=== PATIENT | male | born 1950 | race African-American/Black ===

== ENCOUNTER → 2019-02-05 | Outpatient (CLI) | payer MEDICARE, OTHER ==
[2019-02-06 23:09] LABS: HCV QUANT BY PCR HCV Not Detected IU/mL (())
== END ==
LOC: M.ULTRA 07:30
PROVIDERS: Physician Assistant
DX: B18.2 Chronic viral hepatitis C (principal); N28.1 Cyst of kidney, acquired; R93.2 Abnormal findings on diagnostic imaging of liver and biliary tract; Z90.49 Acquired absence of other specified parts of digestive tract; K74.60 Unspecified cirrhosis of liver

== ENCOUNTER → 2020-05-27 | Outpatient (CLI) | payer MEDICARE, OTHER ==
[~2020-05-27] MED LIST: ALBUTEROL2.5 MG/0.5 INH; ALBUTEROL2.5 MG/31 INH; ALPRAZOLAM 0.0.25 MG PO; AMBIEN 5 MG TABL5 M1 PO; AMITRIPTYLINE H10 M3 PO; ANTIVERT25 MG PO; BENAZEPRIL HCL20 MG PO; CALCIUM 500 +1 EAC5 PO; CALCIUM 600 +1 EA14 PO; CEFUROXIME250 MG PO; CHOLESTYRAMINE P4 GM PO; DILAUDID 4 MG TA4 M1 PO; DILAUDID4 MG PO; KLOR-CON 1010 MEQ PO; LYRICA 50 MG50 MG PO; MAGOX 400400 MG PO; MEDROL DOSPAK21 TA1 PO; MELOXICAM15 MG PO; MOBIC15 MG PO; NAPROSYN500 MG PO; OXYCODONE HCL10 MG PO; PANTOPRAZOLE SO40 M1 PO; PERCOCET 10-321 EACH PO; PREDNISONE 20 M20 MG PO; PREGABALIN50 MG PO; PRILOSEC 20 MG20 MG PO; PROAIR RESPICL90 MCG INH; PROTONIX40 M1 PO; ROXICODONE5 M2 PO; SPIRIVA RESPIMAT4 G1 INH; SYMBICORT160 MCG/4. INH; TIZANIDINE HCL 22 M1 PO; TIZANIDINE HCL2 M1 PO; TRAMADOL 50 MG50 MG PO; TRAZODONE HCL50 MG PO; VENTOLIN HFA 1818 GM INH; VOLTAREN GEL 1100 G1 TOP; XANAX 0.25 MG0.25 MG PO; XANAX 0.5 MG0.5 MG PO; ZANAFLEX4 MG PO; ZOLOFT50 MG PO; ZOLPIDEM TARTRA10 MG PO
== END ==
LOC: M.LAB 11:31
PROVIDERS: ATTEND Internal Medicine Gastroenterology
DX: Z01.812 Encounter for preprocedural laboratory examination (principal); Z11.59 Encounter for screening for other viral diseases; R13.10 Dysphagia, unspecified

== ENCOUNTER → 2020-06-01 | Day surgery (SDC) | payer MEDICARE, OTHER ==
--- NOTE | ~2020-06-01 | PROC ---
[facility] [address] [place] [address] PROCEDURE REPORT Name: BETY WHEELER JR Room: [facility].#: [id number] Admission: 06/01/20 Attend Phys: Rico Escalera MD Discharge: Date of : 52 Report #: [id number] THIS REPORT FOR: //name// cc: Yordy Orosco James A. DO ~ THIS REPORT FOR: //name// For GI report, please see the Provation report in Perceptive 7 content. By: [facility]6Medical Records Staff ASHLEY /ENID
[2020-06-01 08:37] LABS: CALCIUM 8.1 mg/dL (8.5-10.1); CREATININE 1.4 mg/dL (0.6-1.3); POTASSIUM 3.9 mmol/L (3.5-5.1)
[2020-06-01 08:39] LABS: HEMATOCRIT 38.7 % (42.0-52.0); HEMOGLOBIN 12.8 gm/dL (14.0-18.0); MCH 31.7 pg (26.0-34.0); MCHC 33.2 g/dL (28.0-37.0); MCV 95.5 fL (80.0-100.0); MPV 8.4 fl. (7.2-11.1); RBC 4.05 mil/uL (4.50-6.00); RDW-CV 14.2 % (10.5-14.5)
--- NOTE | 2020-06-01 15:09 | EKG ---
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[employer]: : 1950 Requested By: Rico Escalera Order Number: [id number] Randy MD: Poli Lucas Measurements Intervals [place] Rate: 103 P: 70 IN: 134 QRS: 5 QRSD: 83 T: 26 QT: 349 QTc: 457 Interpretive Statements Sinus tachycardia Atrial premature complex Probable left atrial enlargement No previous ECG available for comparison Electronically Signed On 06-01-2020 15:09:01 CDT by Poli Lucas [email or web address] <ELECTRONICALLY SIGNED> By: Poli Lucas MD, [facility] 06/01/20 1509 6 6 Poli Lucas MD, [facility] /EPI
--- NOTE | 2020-06-02 15:08 | PATH ---
[address] [address] PATHOLOGY RPT PROCEDURE Name: FREDDY WHEELER JR Room: [facility]#: [id number] Admission: 06/01/20 Date of : 52 Discharge: Report #: [id number] Path Case #: [id number] [facility] Accession Number: [id number] . 01 Material submitted: . PART A: duodenum - DUODENUM BIOPSY R/O DUODENITIS PART B: esophagus - DISTAL ESOPHAGEAL BIOPSY R/O ESCAMILLA'S . Modifiers: distal PART C: stomach - ANTRAL BIOPSY . 01 Clinical history: . Dyshagia, R/O duodenitis, R/O Escamilla's . 02 Diagnosis: A. Duodenum biopsy: - Mild nonspecific active duodenitis, negative for granulomas and dysplasia. . B. 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 . C. Antrum biopsy: - Mild chronic antral gastritis suggesting reactive gastropathy (chemical gastritis), negative for Helicobacter pylori organisms, granulomas and dysplasia. (RICKY:zakiya; 06/02/2020) . Special stain on C: H. pylori immuno QMS 06/02/2020 1318 Local . 02 Electronically signed: . Kerwin Rose MD, Pathologist NPI- [id number] . 01 Gross description: . A. The specimen is received in formalin, labeled "Freddy Wheeler", "duodenum biopsy". Received are multiple segments of pale blair soft tissue ranging in size from 0.1 cm to 0.2 cm. The specimen is entirely submitted in cassette A1. . B. The specimen is received in formalin, labeled "Freddy Wheeler", "distal esophagus". Received are multiple segments of pale blair-white soft tissue ranging in size from 0.1 cm to 0.3 cm. The specimen is entirely submitted in cassette B1[place] [address] PATHOLOGY RPT PROCEDURE Name: FREDDY WHEELER JR Room: [facility]#: [id number] Admission: 06/01/20 Date of : 52 Discharge: Report #: [id number] Path Case #: [id number] C. The specimen is received in formalin, labeled "Wheeler, Hayes", "antral biopsy". Received are 2 segments of pale white-blair soft tissue measuring 0.1 and 0.3 cm. The specimen is entirely submitted in cassette C1.(SNA; 06/01/2020) HOMERO/KRANTHI 06/01/2020 1850 Local . 02 Pathologist provided ICD-10: K29.80, K20.9, K29.50 . 02 CPT . 193340, 452306, 420453, Y53809 Specimen Comment: A courtesy copy of this report has been sent to [phone] Specimen Comment: [phone] Specimen Comment: Report sent to / DR SAAVEDRA Performed at: [address] [facility] [address], [place], [place] [id number] MD Jarad Holloway MD Phone: [phone] Performed at: [address] [facility] [address] [place], [place] [id number] MD Kerwin Rose MD Phone: [phone]
== END | disposition home or self-care (01) ==
LOC: M.SUR 07:56
PROVIDERS: ATTEND Internal Medicine Gastroenterology
DX: R10.13 Epigastric pain (principal); R13.10 Dysphagia, unspecified; K29.80 Duodenitis without bleeding; K29.50 Unspecified chronic gastritis without bleeding; K21.0 Gastro-esophageal reflux disease with esophagitis; K22.2 Esophageal obstruction; K22.8 Other specified diseases of esophagus; K44.9 Diaphragmatic hernia without obstruction or gangrene; K31.89 Other diseases of stomach and duodenum; I10 Essential (primary) hypertension; J44.9 Chronic obstructive pulmonary disease, unspecified; G47.30 Sleep apnea, unspecified; F41.9 Anxiety disorder, unspecified; F17.210 Nicotine dependence, cigarettes, uncomplicated; Z98.890 Other specified postprocedural states; Z79.899 Other long term (current) drug therapy; Z88.8 Allergy status to other drugs, medicaments and biological substances